=== PATIENT | male | born 1965 | race Caucasian/White ===

== ENCOUNTER 2021-10-29 23:15 | Inpatient (IN) | payer OTHER ==
[2021-10-30] MEDS ORDERED: morphine CARPU-JECT 2 MG/1 ML DISP.SYRIN IVPUSH ONE (00:04)
[2021-10-30] MEDS ORDERED: ACETAMINOPHEN 1000 MG/100 ML BAG IVPB ONE (01:04)
[2021-10-30] MEDS ORDERED: IBUPROFEN 600 MG TABLET (FP) PO ONE ×2 (01:04→01:15)
[2021-10-30 01:09] LABS: BASO % 0.5 % (0-2.0); EOS % 0.1 % (0-4.5); HEMOGLOBIN 13.4 GM/dL (11.7-16.9); LYMPH % 9.9 % (8-40); MCH 31.5 pg (25.7-33.7); MCHC 34.2 g/dl (32.0-35.9); MEAN PLT VOLUME 8.8 fl (7.5-11.1); MONO % 7.6 % (3.8-10.2); NEUT % 81.9 % (42.8-82.8); PLATELET COUNT 155 10^3/uL (134-434); RBC 4.24 M/mm3 (4.00-5.60); RDW 13.8 % (11.9-15.9); WHITE BLOOD COUNT 14.4 K/mm3 (4.0-10.0)
[2021-10-30 01:11] LABS: EPI CELLS 9 /uL (0-25.1); HYALINE CASTS 0 /uL (0-3.1); URINE APPEARANCE CLEAR; URINE BACTERIA 4 /uL (0-1359); URINE BILIRUBIN NEGATIVE (NEGATIVE); URINE COLOR YELLOW; URINE GLUCOSE (UA) NEGATIVE (NEGATIVE); URINE KETONE 1+ (NEGATIVE); URINE LEUK ESTERASE NEGATIVE (NEGATIVE); URINE NITRITE NEGATIVE (NEGATIVE); URINE PROTEIN TRACE (NEGATIVE); URINE RBC 14 /uL (0-23.9); URINE UROBILINOGEN 0.2 mg/dL (0.2-1.0); URINE WBC 54 /uL (0-25.8)
[2021-10-30] MEDS ORDERED: ACETAMINOPHEN INJECTION 100 ML IVPB ONE (01:15)
[2021-10-30 01:26] LABS: ALBUMIN 3.4 g/dl (3.4-5.0); BLOOD UREA NITROGEN 15.8 mg/dL (7-18); CALCIUM 8.2 mg/dL (8.5-10.1)
[2021-10-30 01:29] LABS: CREATININE 1.2 mg/dL (0.55-1.3)
[2021-10-30 01:30] LABS: BILIRUBIN,TOTAL 0.9 mg/dL (0.2-1)
[2021-10-30 01:31] LABS: TOT PROT 6.6 g/dl (6.4-8.2)
[2021-10-30] MEDS ORDERED: diphenhydrAMINE HCL 25 MG CAPSULE (FP) PO ONE ×2 (02:58→02:59)
[2021-10-30] MEDS ORDERED: POLYETHYLENE GLYCOL (HEALTHYLAX) 3350 17 GM PACKET PO PRN (03:01)
[2021-10-30] MEDS ORDERED: ALBUTEROL SO4 HFA INHALER IH PRN (03:46)
[2021-10-30] MEDS: SODIUM CHLORIDE 1,000 ML IV SCH ×3 (04:51→21:12)
[2021-10-30 06:30] VITALS: BMI 28.9
[2021-10-30] MEDS ORDERED: TAMSULOSIN HCL 0.4 MG CAP PO SCH (08:30)
[2021-10-30 09:48] LABS: BASO % 0.5 % (0-2.0); EOS % 0.6 % (0-4.5); HEMATOCRIT 37.1 % (35.4-49); HEMOGLOBIN 12.6 GM/dL (11.7-16.9); LYMPH % 11.2 % (8-40); MCH 31.6 pg (25.7-33.7); MCHC 34.1 g/dl (32.0-35.9); MEAN CELL VOLUME 92.9 fl (80-96); MEAN PLT VOLUME 8.2 fl (7.5-11.1); NEUT % 83.7 % (42.8-82.8); PLATELET COUNT 150 10^3/uL (134-434); RDW 13.6 % (11.9-15.9); WHITE BLOOD COUNT 11.8 K/mm3 (4.0-10.0)
[2021-10-30 10:08] LABS: CALCIUM 8.3 mg/dL (8.5-10.1)
[2021-10-30] MEDS: LISINOPRIL 20 MG TABLET PO SCH (10:08)
[2021-10-30] MEDS: LORATADINE 10 MG TABLET PO SCH (10:08)
[2021-10-30] MEDS: ENOXAPARIN NA (PORCINE) 40 MG/0.4 ML DISP.SYRIN SQ SCH (10:08)
[2021-10-30 10:09] LABS: BLOOD UREA NITROGEN 13.2 mg/dL (7-18); MAGNESIUM 2.4 mg/dL (1.8-2.4)
[2021-10-30 10:12] LABS: CREATININE 1.2 mg/dL (0.55-1.3); PHOSPHOROUS 2.4 mg/dL (2.5-4.9)
[2021-10-30 10:13] LABS: TOT PROT 5.9 g/dl (6.4-8.2)
[2021-10-30] MEDS: IBUPROFEN 400 MG TABLET (FP) PO PRN (15:12)
[2021-10-30] MEDS: ATORVASTATIN CA 10 MG TABLET (FP) PO SCH (21:12)
[2021-10-30] MEDS: MONTELUKAST NA 10 MG TABLET PO SCH (21:12)
[2021-10-31] MEDS: SODIUM CHLORIDE 1,000 ML IV SCH ×2 (05:36→07:43)
[2021-10-31] MEDS: IBUPROFEN 400 MG TABLET (FP) PO PRN (06:33)
[2021-10-31] MEDS: LISINOPRIL 20 MG TABLET PO SCH (10:19)
[2021-10-31] MEDS: TAMSULOSIN HCL 0.4 MG CAP PO SCH (10:19)
[2021-10-31] MEDS: ACETAMINOPHEN 325 MG TABLET (FP) PO PRN (10:19)
[2021-10-31] MEDS: LORATADINE 10 MG TABLET PO SCH (10:20)
[2021-10-31] MEDS: ENOXAPARIN NA (PORCINE) 40 MG/0.4 ML DISP.SYRIN SQ SCH (10:20)
[2021-10-31] MEDS ORDERED: FLUTICASONE PROP 0.05% 16 GM NASAL SPRAY NS PRN (11:55)
[2021-10-31] MEDS ORDERED: NAPH,MB-DB/K PH,MBDB POWDER PACKET PO ONE (12:15)
[2021-10-31] MEDS: ATORVASTATIN CA 10 MG TABLET (FP) PO SCH (21:23)
[2021-10-31] MEDS: MONTELUKAST NA 10 MG TABLET PO SCH (21:23)
[2021-11-01] MEDS: ACETAMINOPHEN 325 MG TABLET (FP) PO PRN (03:24)
[2021-11-01 08:06] LABS: SARS-CoV-2 NAA Not Detected (Not Detected)
[2021-11-01] MEDS: TAMSULOSIN HCL 0.4 MG CAP PO SCH (08:21)
[2021-11-01 08:27] LABS: BASO % 0.8 % (0-2.0); EOS % 4.5 % (0-4.5); HEMATOCRIT 36.6 % (35.4-49); HEMOGLOBIN 12.2 GM/dL (11.7-16.9); LYMPH % 33.1 % (8-40); MCHC 33.2 g/dl (32.0-35.9); MEAN CELL VOLUME 93.2 fl (80-96); MEAN PLT VOLUME 8.6 fl (7.5-11.1); MONO % 11.9 % (3.8-10.2); NEUT % 49.7 % (42.8-82.8); PLATELET COUNT 197 10^3/uL (134-434); RBC 3.93 M/mm3 (4.00-5.60); RDW 13.7 % (11.9-15.9); WHITE BLOOD COUNT 4.1 K/mm3 (4.0-10.0)
[2021-11-01] MEDS: LORATADINE 10 MG TABLET PO SCH (10:27)
[2021-11-01] MEDS: LISINOPRIL 20 MG TABLET PO SCH (10:27)
[2021-11-01] MEDS: ENOXAPARIN NA (PORCINE) 40 MG/0.4 ML DISP.SYRIN SQ SCH (11:14)
[2021-11-01 14:02] VITALS: BP 132/75; PULSE 85; TEMP 98.6
== END 2021-11-01 18:18 | disposition home or self-care (01) | DRG 466 ==
LOC: JER 23:15 → JERBED 10-30 02:58 → J6S 10-30 06:15
PROVIDERS: ADMIT Internal Medicine
DX: N99.89 Other postprocedural complications and disorders of genitourinary system (principal); I10 Essential (primary) hypertension; D72.829 Elevated white blood cell count, unspecified; E78.5 Hyperlipidemia, unspecified; J45.909 Unspecified asthma, uncomplicated; N40.1 Benign prostatic hyperplasia with lower urinary tract symptoms; N41.0 Acute prostatitis; R30.0 Dysuria; R33.9 Retention of urine, unspecified; Y83.9 Surgical procedure, unspecified as the cause of abnormal reaction of the patient, or of later complication, without mention of misadventure at the time of the procedure
CPT/HCPCS: 36415; 71046-TC-FY; 74176-TC; 80053; 81003; 83036; 83605; 83735; 84100; 85025; 87040; 87086; 87491; 87591; 93005; 93010; 99285-25; C9803-CS; U0003; U0005